=== PATIENT | male | born 1945 | race Two or more races ===

== ENCOUNTER 2017-10-23 13:15 | Emergency (ER) | payer OTHER ==
[~2017-10-23] VITALS: Ht 165.1 cm; Wt 74.8 kg
[~2017-10-23 13:15] MED LIST: CARB200T39 PO; FLUO20CA36 PO; HYDR-3026 PO; LEVE250T2 PO; PROP10TA10 PO; TAMS0.4C34 PO
--- NOTE | 2017-10-23 13:20 | NUR ---
BBRA FROM HOME,POSSIBLE SEIZURE EPISODE PER ROOMMATE MOUTH WAS FOAMING AND EXTREMITIES LOCKING. BS-120 PT HAS NO COMPLAINTS NOW, NAD NOTED, VSS, RESP EVEN AND UNLABORED, WAITING FOR MD MCMAHAN.
[2017-10-23 14:58] LABS: BASOPHILS # (AUTO) 0.1 /CMM (0.0-0.2); BASOPHILS % (AUTO) 0.9 % (0.0-2.0); EOSINOPHILS % (AUTO) 0.2 % (0.0-6.0); HEMATOCRIT 38 % (39-51); HEMOGLOBIN 12.9 g/dL (13.5-17.5); LYMPHOCYTES # (AUTO) 0.9 /CMM (0.8-4.8); LYMPHOCYTES % (AUTO) 11.3 % (20.0-44.0); MEAN CORPUSCULAR HEMOGLOBIN 31 PG (26.0-33.0); MEAN CORPUSCULAR HGB CONC 35 g/dl (31.0-36.0); MEAN CORPUSCULAR VOLUME 91 fL (80-96); MONOCYTES # (AUTO) 0.5 /CMM (0.1-1.30); MONOCYTES % (AUTO) 5.6 % (2.0-12.0); NEUTROPHILS # (AUTO) 6.9 /CMM (1.8-8.9); PLATELET COUNT (AUTO) 219 /CMM (150-450); RED BLOOD CELL COUNT(AUTO) 4.12 MIL/uL (4.5-6.0); WHITE BLOOD COUNT (AUTO) 8.4 K/uL (4.3-11.0)
[2017-10-23 15:09] LABS: CALCIUM, SERUM 9.1 mg/dL (8.5-10.1); CARBON DIOXIDE 30 mmol/L (21-32); CHLORIDE 103 mmol/L (98-107); GLUCOSE 111 mg/dL (74-106); POTASSIUM 4.6 mmol/L (3.5-5.1); SODIUM SERUM 136 mmol/L (136-145); UREA NITROGEN, BLOOD 10 mg/dL (7-18)
[2017-10-23 15:46] LABS: VALPROIC ACID < 3 ug/mL (50-100)
[2017-10-23] MEDS ORDERED: VALPROIC ACID 250 MG/5 ML UDC PO ONE (16:00)
[2017-10-23] MEDS ORDERED: VALPROIC ACID 250 MG/5 ML UDC ONE (16:02)
[2017-10-23 16:16] VITALS: BP 138/89
--- NOTE | 2017-10-23 16:17 | NUR ---
Patient discharged to home in stable condition. Written and verbal after care instructions given. Patient verbalizes understanding of instruction. Prescription given.
== END 2017-10-23 16:17 | disposition home or self-care (01) ==
LOC: ER 13:16
DX: G40.909 Epilepsy, unspecified, not intractable, without status epilepticus (principal); I10 Essential (primary) hypertension; K21.9 Gastro-esophageal reflux disease without esophagitis; Z91.19 Patient's noncompliance with other medical treatment and regimen; Z90.49 Acquired absence of other specified parts of digestive tract
CPT/HCPCS: 36415; 80048; 80164; 85025; 99284; A4606; Z7610

== ENCOUNTER 2018-12-07 12:13 | Inpatient (IN) | payer MEDICARE, OTHER ==
[~2018-12-07] VITALS: Ht 165.1 cm; Wt 77.1 kg
--- NOTE | 2018-12-07 12:13 | NUR ---
SEEN AND EXAMINED BY DR. MARTINEZ.
--- NOTE | 2018-12-07 12:13 | NUR ---
PT BIB [facility] FROM HOME,ACTING CONFUSED PER FAMILY, HAD A SEIZURE YESTERDAY PER REPORT, PT IS AAOX2, NOT IN RESPIRATORY DISTRESS, V/S STABLE, HOOKED TO MONITOR, KEPT RESTED AND COMFORTABLE, WILL CONTINUE TO MONITOR.
--- NOTE | 2018-12-07 12:15 | NUR ---
IV LINE ESTABLISHED, LABS DRAWNED AND SENT TO LAB.
--- NOTE | 2018-12-07 12:37 | NUR ---
TINWARE LITHOGRAPH PRESS OPERATOR AT BEDSIDE FOR XRAY.
[2018-12-07 12:40] LABS: BASOPHILS # (AUTO) 0.1 /CMM (0.0-0.2); BASOPHILS % (AUTO) 0.4 % (0.0-2.0); EOSINOPHILS % (AUTO) 0.1 % (0.0-6.0); HEMATOCRIT 42 % (39-51); HEMOGLOBIN 14.3 g/dL (13.5-17.5); LYMPHOCYTES # (AUTO) 1.4 /CMM (0.8-4.8); LYMPHOCYTES % (AUTO) 10.6 % (20.0-44.0); MEAN CORPUSCULAR HGB CONC 34 g/dl (31.0-36.0); MEAN CORPUSCULAR VOLUME 94 fL (80-96); MONOCYTES % (AUTO) 7.2 % (2.0-12.0); NEUTROPHILS # (AUTO) 11.2 /CMM (1.8-8.9); NEUTROPHILS % (AUTO) 81.7 % (43.0-81.0); PLATELET COUNT (AUTO) 262 /CMM (150-450); RED BLOOD CELL COUNT(AUTO) 4.51 MIL/uL (4.5-6.0); WHITE BLOOD COUNT (AUTO) 13.7 K/uL (4.3-11.0)
--- NOTE | 2018-12-07 12:40 | NUR ---
HOUSE SUP CALLED FOR BED
--- NOTE | 2018-12-07 12:43 | NUR ---
PT IS WHEELED TO CT SCAN VIA [facility].
[2018-12-07 12:50] LABS: CALCIUM, SERUM 9.5 mg/dL (8.5-10.1); CARBON DIOXIDE 25 mmol/L (21-32); CHLORIDE 100 mmol/L (98-107); CREATININE 1.2 mg/dL (0.6-1.3); GLUCOSE 140 mg/dL (74-106); POTASSIUM 3.6 mmol/L (3.5-5.1); SODIUM SERUM 136 mmol/L (136-145); UREA NITROGEN, BLOOD 22 mg/dL (7-18)
[2018-12-07] MEDS ORDERED: FINA5TAB11 PO (12:51)
[2018-12-07] MEDS ORDERED: OMEP20CA10 PO (12:51)
[2018-12-07] MEDS ORDERED: SIMV10TA6 PO (12:51)
[2018-12-07] MEDS ORDERED: LEVE100023 PO (12:51)
[2018-12-07] MEDS ORDERED: IBUP-1490 PO (12:51)
[2018-12-07] MEDS ORDERED: AMLO2.5T4 PO (12:51)
[2018-12-07] MEDS ORDERED: AMIT100T2 PO (12:51)
[2018-12-07] MEDS ORDERED: METO-357 PO (12:51)
[2018-12-07] MEDS ORDERED: CETI10TA14 PO (12:51)
--- NOTE | 2018-12-07 12:53 | NUR ---
PT IS BACK FROM THE CT SCAN, AWATING RESULT.
[2018-12-07 12:55] LABS: ALANINE AMINOTRANSFERASE 32 U/L (12-78); ALBUMIN 4.3 g/dL (3.4-5.0); ALKALINE PHOSPHATASE 82 U/L (46-116); ASPARTATE AMINOTRANSFERASE 58 U/L (15-37); BILIRUBIN,DIRECT 0.2 mg/dL (0.0-0.2); BILIRUBIN,TOTAL 1.3 mg/dL (0.2-1.0); TOTAL PROTEIN, SERUM 8.5 g/dL (6.4-8.2)
--- NOTE | 2018-12-07 12:58 | NUR ---
BED GIVE 307 [phone]
[2018-12-07 13:15] LABS: CHOLESTEROL 198 mg/dL (<200); HDL CHOLESTEROL 57 mg/dL (40-60); LDL 126 mg/dL (0-99); TRIGLYCERIDES 111 mg/dL (30-150)
[2018-12-07] MEDS ORDERED: ASPIRIN 325 MG TABLET PO ONE (14:00)
[2018-12-07] MEDS ORDERED: LEVETIRACETAM (500MG) 500 MG in IV NS 0.9% 100 ML IV ONE (14:00)
--- NOTE | 2018-12-07 14:00 | NUR ---
REPORT GIVEN TO ONEL LENNON FOR MARKUS, WITH ONGOING KEPPRA STILL INFUSING.
[2018-12-07] MEDS ORDERED: ASPIRIN 325 MG TABLET ONE (14:04)
[2018-12-07 15:00] VITALS: BP 143/85
[2018-12-07] MEDS ORDERED: HYDROCODONE/APAP 5/325MG 1 EACH TABLET PO PRN (15:00)
[2018-12-07] MEDS ORDERED: MAGNESIUM HYDROXIDE 30 ML UDC PO PRN (15:00)
[2018-12-07] MEDS ORDERED: Z GUARD REMEDY 2 OZ OINT TP PRN (15:00)
[2018-12-07] MEDS ORDERED: ACETAMINOPHEN 325 MG TABLET PO PRN (15:00)
[2018-12-07] MEDS ORDERED: cetrizine 10 MG TABLET PO PRN (15:00)
[2018-12-07] MEDS ORDERED: ONDANSETRON HCL/PF 4 MG/2 ML VIAL IVP PRN (15:00)
[2018-12-07] MEDS ORDERED: MAG HYDROX/AL HYDROX/SIMETH 30 ML UDC PO PRN (15:00)
[2018-12-07] MEDS ORDERED: IBUPROFEN 600 MG TABLET PO PRN (15:00)
--- NOTE | 2018-12-07 15:00 | NUR ---
BANQUET COORDINATORAIRCRAFT ARMORER NOTE PT ARRIVED VIA GURNEY IN STABLE CONDITION. PT IS A/O X2, FORGETFUL. RESPIRATIONS ARE EVEN AND UNLABORED, NOT IN ANY ACUTE DISTRESS NOTED. PUPILS ARE REACTIVE TO LIGHT, BILATERAL HAND PUBLIC HEALTH REPRESENTATIVE ARE STRONG AND EQUAL. DENIES ANY PAIN AT THIS TIME, NO C/O SOB, N/V. ABDOMEN IS SOFT AND NONDISTENDED, BOWEL SOUNDS ARE PRESENT IN ALL 4 QUADRANTS UPON AUSCULTATION. DENIES ANY BLADDER DISCOMFORT. IV SITE TO RAC 18G INTACT, NO INFILTRATION NOTED. DRESSING KEPT CLEAN AND DRY. PT CURRENTLY ON KEPPRA FROM ER, WAITING TO BE COMPLETED. NO SKIN ISSUES NOTED. AISHA LOCKE, VARUN, MADE AWARE OF ADMISSION W/ ORDERS CARRIED OUT. INSTRUCTED PT TO USE ALL LIGHT WHEN ASSISTANCE IS NEEDED, CALL LIGHT IS LEFT WITHIN REACH. WILL MONITOR THROUGHOUT SHIFT FOR CONTINUITY OF CARE.
[2018-12-07 16:00] VITALS: BP 143/85
[2018-12-07] MEDS: IV NS 0.9% 1,000 ML IV PRN (17:02)
[2018-12-07] MEDS: SIMVASTATIN 10 MG TABLET PO SCH ×3 (17:02→18:22)
[2018-12-07] MEDS ORDERED: LORAZEPAM INJ 2 MG/ML VIAL IV PRN (17:30)
--- NOTE | 2018-12-07 18:29 | NUR ---
CEMENTING BULK MATERIAL OPERATOR CLOSING NOTES NEEDS MET AND ANTICIPATED. PT IS A/O X2. RESPIRATIONS ARE EVEN AND UNLABORED, NOT IN ANY ACUTE DISTRESS NOTED. PT DENIES ANY PAIN AT THIS TIME, NO C/O SOB, N/V. IV SITE INTACT TO RAC, DRESSING KEPT CLEAN AND DRY. IV FLUIDS RUNNING AT 75ML/HR, TOLERATING WELL. URINE COLLECTED, LAB CALLED FOR P/U. REMINDED PT TO USE CALL LIGHT WHEN ASSISTANCE IS NEEDED, CALL LIGHT IS LEFT WITHIN REACH.
--- NOTE | 2018-12-07 20:08 | NUR ---
PHOTO COLORER NOTES RECEIVED PATIENT AWAKE IN BED AND WATCHING TV WITH NO DISTRESS NOTED. CALL LIGHT WITHIN REACH. PERIPHERAL LINE INTACT AND PATENT. NO C/O PAIN OR DISCOMFORT. BED IN LOW LOCK SETTING. ROOM FREE OF CLUTTER AND BELONGINGS KEPT NEAR BEDSIDE. WILL CONTINUE TO MONITOR.
[2018-12-07 20:10] LABS: BILIRUBIN,URINE NEGATIVE (NEGATIVE); BLOOD, URINE 1+ Ery/uL (NEGATIVE); COLOR,URINE YELLOW (YELLOW); KETONES,URINE TRACE (NEGATIVE); LEUKOCYTE ESTERASE ,URINE NEGATIVE (NEGATIVE); NITRITE, URINE NEGATIVE (NEGATIVE); PROTEIN,URINE 1+ mg/dl (NEGATIVE); UGLUCOSE NEGATIVE (NEGATIVE); UROBILINOGEN,URINE 0.2 EU/dL (0.2)
[2018-12-07 20:16] LABS: APPEARANCE,URINE SLIGHTLY HAZY (CLEAR)
[2018-12-07 20:27] LABS: BACTERIA,URINE Moderate /HPF (None Seen); SQUAMOUS EPITHELIAL CELL,UR Few /HPF (None Seen)
[2018-12-07 20:29] LABS: HYALINE CASTS, URINE Few /LPF (None Seen)
[2018-12-07 20:30] VITALS: BP 137/72
[2018-12-07] MEDS: LEVETIRACETAM (250 MG) 250 MG TABLET PO SCH (21:22)
[2018-12-07] MEDS: AMITRIPTYLINE HCL 25 MG TABLET PO SCH (21:24)
[2018-12-08 00:27] VITALS: BP 127/74
[2018-12-08 04:00] VITALS: BP 124/69
--- NOTE | 2018-12-08 06:05 | NUR ---
PEDIATRIC PHYSICIAN NOTES PATIENT ASLEEP IN BED WITH NO DISTRESS NOTED. CALL LIGHT WITHIN REACH. ALL DUE MEDS GIVEN ORDERED WITH NO ASE NOTED. NO C/O PAIN OR DISCOMFORT. PERIPHERAL LINE INTACT AND PATENT. ROOM FREE OF CLUTTER AND ALL BELONGINGS KEPT NEAR BEDSIDE. WILL ENDORSE TO ONCOMING SHIFT.
[2018-12-08] MEDS: IV NS 0.9% 1,000 ML IV PRN (06:33)
[2018-12-08 06:36] LABS: BASOPHILS % (AUTO) 0.4 % (0.0-2.0); EOSINOPHILS % (AUTO) 0.2 % (0.0-6.0); HEMATOCRIT 39 % (39-51); HEMOGLOBIN 13.3 g/dL (13.5-17.5); LYMPHOCYTES # (AUTO) 1.9 /CMM (0.8-4.8); LYMPHOCYTES % (AUTO) 23.3 % (20.0-44.0); MEAN CORPUSCULAR HGB CONC 35 g/dl (31.0-36.0); MEAN CORPUSCULAR VOLUME 93 fL (80-96); MONOCYTES # (AUTO) 0.8 /CMM (0.1-1.30); MONOCYTES % (AUTO) 10.6 % (2.0-12.0); NEUTROPHILS # (AUTO) 5.2 /CMM (1.8-8.9); NEUTROPHILS % (AUTO) 65.5 % (43.0-81.0); PLATELET COUNT (AUTO) 204 /CMM (150-450); RED BLOOD CELL COUNT(AUTO) 4.14 MIL/uL (4.5-6.0)
[2018-12-08 06:41] LABS: CALCIUM, SERUM 8.5 mg/dL (8.5-10.1); CARBON DIOXIDE 24 mmol/L (21-32); CHLORIDE 107 mmol/L (98-107); CREATININE 1.1 mg/dL (0.6-1.3); GLUCOSE 100 mg/dL (74-106); MAGNESIUM 2.6 mg/dL (1.8-2.4); PHOSPHORUS 3.4 mg/dL (2.5-4.9); POTASSIUM 3.5 mmol/L (3.5-5.1); SODIUM SERUM 142 mmol/L (136-145); UREA NITROGEN, BLOOD 25 mg/dL (7-18)
[2018-12-08 07:04] LABS: CHOLESTEROL 175 mg/dL (<200); HDL CHOLESTEROL 46 mg/dL (40-60); LDL 112 mg/dL (0-99); THYROID STIMULATING HORMONE 1.145 uIU/mL (0.358-3.74); TRIGLYCERIDES 141 mg/dL (30-150)
--- NOTE | 2018-12-08 07:28 | NUR ---
MS RN OPENING NOTES RECEIVED PT LAYING IN BED, RESTING COMFORTABLY. PT IS AROUSABLE, ALERT AND RESPONSIVE. AFEBRILE. RESPIRATIONS ARE EVEN AND UNLABORED, NOT IN ANY ACUTE DISTRESS NOTED. DENIES ANY PAIN AT THIS TIME, NO C/O SOB, N/V. IV SITE TO RAC INTACT, NO INFILTRATION NOTED. DRESSING KEPT CLEAN AND DRY. IV FLUIDS RUNNING AT 75ML/HR, TOLERATING WELL. SAFETY MEASURES ARE IN PLACE. INSTRUCTED PT TO USE CALL LIGHT WHEN ASSISTANCE IS NEEDED, CALL LIGHT IS LEFT WITHIN REACH. WILL MONITOR THROUGHOUT SHIFT FOR CONTINUITY OF CARE. DAUGHTER AT BEDSIDE.
[2018-12-08 08:00] VITALS: BP 123/73
[2018-12-08] MEDS: TAMSULOSIN 0.4 MG CAP.SR.24H PO SCH (08:11)
[2018-12-08] MEDS: PANTOPRAZOLE 40 MG TABLET.DR PO SCH (08:11)
[2018-12-08] MEDS: FINASTERIDE (5 MG) 5 MG TABLET PO SCH (08:11)
[2018-12-08] MEDS: LEVETIRACETAM (250 MG) 250 MG TABLET PO SCH ×2 (08:11→21:15)
[2018-12-08] MEDS: ASPIRIN 81 MG TAB.CHEW PO SCH (08:11)
[2018-12-08] MEDS: AMLODIPINE BESYLATE 2.5 MG TABLET PO SCH (08:12)
[2018-12-08] MEDS: METOPROLOL SUCCINATE 50 MG TAB.SR.24H PO SCH (08:12)
--- NOTE | 2018-12-08 10:30 | NUR ---
MS RN NOTES-- PT SEEN AND EXAMINED BY AISHA LOCKE NP.
[2018-12-08 11:14] LABS: ALBUMIN 3.6 g/dL (3.4-5.0); BILIRUBIN,DIRECT 0.2 mg/dL (0.0-0.2); BILIRUBIN,TOTAL 1.5 mg/dL (0.2-1.0); TOTAL PROTEIN, SERUM 7.1 g/dL (6.4-8.2)
--- NOTE | 2018-12-08 15:14 | NUR ---
MS RN NOTES-- REPORT GIVEN TO ZONIA FOR TRANSFER OF CARE. PT REMAINS A/O X2-3, AFEBRILE. RESPIRATIONS ARE EVEN AND UNLABORED, NOT IN ANY ACUTE DISTRESS NOTED. PT DENIES ANY PAIN AT THIS TIME, NO C/O SOB, N/V. IV SITE TO RAC INTACT, NO INFILTRATION NOTED. DRESSING KEPT CLEAN AND DRY. SAFETY MEASURES ARE IN PLACE. ENDORSED FOR CONTINUITY OF CARE.
--- NOTE | 2018-12-08 15:23 | NUR ---
M/S RN RECEIVED A REPORT FROM ONEL MOREL TO MONITOR PATIENT FOR ANY CHANGE OF CONDITION. SAW PATIENT SITTING ON WHEELCHAIR UPRIGHT, A/O X 2 AND ABLE TO MAKE NEEDS KNOWN. RESPIRATION EVEN AND NON LABORED WITH NO ACUTE RESPIRATORY DISTRESS. DENIES PAIN AND DISCOMFORT. IV ON RIGHT ANTECUBITAL WITH NO SIGNS AND SYMPTOMS OF INFILTRATION. PLACED CALL LIGHT WITHIN REACH AND ALL NURSING CARE ATTENDED. WILL CONTINUE TO EVALUATE CARE.
[2018-12-08 16:00] VITALS: BP 132/76
[2018-12-08] MEDS: SIMVASTATIN 10 MG TABLET PO SCH (17:24)
--- NOTE | 2018-12-08 18:36 | NUR ---
MS/RN CLOSING NOTES PATIENT ON BED WITH HEAD OF BED ELEVATED RESTING COMFORTABLY. A/O X 1-2 WITH EPISODE OF CONFUSION; GERMAN SPEAKING ONLY. RESPIRATION EVEN AND NON LABORED WITH NO ACUTE RESPIRATORY DISTRESS, LUNGS CLEARED BILATERALLY UPON AUSCULTATION. DENIES PAIN AND DISCOMFORT. ABDOMEN SOFT AND NON DISTENDED WITH ACTIVE BOWEL SOUNDS; LAST BM TODAY X3 WITH NORMAL TEXTURE. SKIN REMAIN INTACT AND DRY WITH NO OPEN SKIN BREAKDOWN. CONTINENT IN BOWEL AND BLADDER; USES URINE WITH BATHROOM PRIVILEGES WITH MINIMAL ASSISTANCE. IV ON RIGHT ANTECUBITAL WITH NO SIGNS AND SYMPTOMS OF INFILTRATION RUNNING AT 75 ML/HR. PLACED CALL LIGHT WITHIN REACH AND ALL NURSING CARE ATTENDED. ENDORSED CARE TO NEXT SHIFT
--- NOTE | 2018-12-08 19:10 | NUR ---
MS RN OPENING NOTES Received patient awake on supine position on bed, no discomfort noted at this time. Patient requested to hold IVF as it keeps on beeping everytime he moves his arm. Encourage patient to increase oral fluid intake. Patient verbalized understanding. Call light within easy reach. Will continue to monitor accordingly.
[2018-12-08 20:00] VITALS: BP 132/75
[2018-12-08] MEDS ORDERED: AMITRIPTYLINE HCL 25 MG TABLET ONE (21:44)
[2018-12-08] MEDS: AMITRIPTYLINE HCL 25 MG TABLET PO SCH (21:48)
[2018-12-09 06:42] LABS: BASOPHILS % (AUTO) 0.3 % (0.0-2.0); EOSINOPHILS % (AUTO) 0.7 % (0.0-6.0); HEMATOCRIT 37 % (39-51); HEMOGLOBIN 12.6 g/dL (13.5-17.5); LYMPHOCYTES % (AUTO) 25.2 % (20.0-44.0); MEAN CORPUSCULAR HGB CONC 34 g/dl (31.0-36.0); MEAN CORPUSCULAR VOLUME 94 fL (80-96); MONOCYTES # (AUTO) 0.8 /CMM (0.1-1.30); MONOCYTES % (AUTO) 9.6 % (2.0-12.0); NEUTROPHILS # (AUTO) 5.1 /CMM (1.8-8.9); NEUTROPHILS % (AUTO) 64.2 % (43.0-81.0); PLATELET COUNT (AUTO) 216 /CMM (150-450); RED BLOOD CELL COUNT(AUTO) 3.94 MIL/uL (4.5-6.0)
--- NOTE | 2018-12-09 06:42 | NUR ---
MS RN CLOSING NOTES Patient asleep on supine position on bed. IVF on hold per patient request, patient noted drinking water well. Provided water at bedside. No new complaints made within the shift. All due meds given, tolerated well, no ASE noted. Kept bed low and locked, call light within easy reach. Endorsed to the next shift.
[2018-12-09 06:57] LABS: CALCIUM, SERUM 8.6 mg/dL (8.5-10.1); CARBON DIOXIDE 23 mmol/L (21-32); CHLORIDE 108 mmol/L (98-107); CREATININE 1.1 mg/dL (0.6-1.3); GLUCOSE 110 mg/dL (74-106); POTASSIUM 3.6 mmol/L (3.5-5.1); SODIUM SERUM 142 mmol/L (136-145); UREA NITROGEN, BLOOD 21 mg/dL (7-18)
[2018-12-09 08:00] VITALS: BP 147/84
[2018-12-09] MEDS: PANTOPRAZOLE 40 MG TABLET.DR PO SCH (08:26)
[2018-12-09] MEDS: ASPIRIN 81 MG TAB.CHEW PO SCH (08:26)
[2018-12-09] MEDS: METOPROLOL SUCCINATE 50 MG TAB.SR.24H PO SCH (08:27)
[2018-12-09] MEDS: FINASTERIDE (5 MG) 5 MG TABLET PO SCH (08:27)
[2018-12-09] MEDS: AMLODIPINE BESYLATE 2.5 MG TABLET PO SCH (08:27)
[2018-12-09] MEDS: TAMSULOSIN 0.4 MG CAP.SR.24H PO SCH (08:27)
[2018-12-09] MEDS: LEVETIRACETAM (250 MG) 250 MG TABLET PO SCH (08:27)
[2018-12-09] MEDS ORDERED: ASPI-1169 PO (12:31)
--- NOTE | 2018-12-09 13:31 | NUR ---
MS RN NOTES-- PT NOT IN ANY APPARENT DISTRESS. ABLE TO MAKE NEEDS KNOWN, NEEDS RENDERED. WILL CONTINUE TO MONITOR.
[2018-12-09 16:00] VITALS: BP 157/85
--- NOTE | 2018-12-09 16:49 | NUR ---
MS CIRCULAR STUFFER NOTE PT DISCHARGED TO HOME IN STABLE CONDITION ACCOMPANIED BY VIA PERSONAL VEHICLE. PT IS A/O X3, AFEBRILE. RESPIRATIONS ARE EVEN AND UNLABORED, NOT IN ANY ACUTE DISTRESS NOTED. PT DENIES ANY PAIN, SOB, N/V. PUPILS ARE REACTIVE TO LIGHT, BILATERAL HAND EMS MANAGER ARE STRONG AND EQUAL. ABDOMEN IS SOFT AND NONDISTENDED, BOWEL SOUNDS ARE PRESENT IN ALL 4 QUADRANTS UPON AUSCULTATION. DENIES ANY BLADDER DISCOMFORT. PT IS AMBULATORY, CONTINENT. NO SKIN ISSUES NOTED, SKIN IS INTACT. IV ACCESS REMOVED, APPLIED PRESSURE AND TOLERATED WELL. ID BAND REMOVED. EXPLAINED DISCHARGE PAPERWORK TO PT AND WITH VERBAL AND WRITTEN UNDERSTANDING. ALL BELONGINGS SENT WITH PT AND SIGNED. PT ACCOMPANIED TO VEHICLE WITH 1 STAFF ASSIST VIA .
== END 2018-12-09 17:00 | disposition home or self-care (01) | DRG 100 ==
LOC: ER 12:19 → TELE 12:59 → MED 12-08 09:39
PROVIDERS: ADMIT Nurse Practitioner Acute Care; ATTEND Nurse Practitioner Acute Care
DX: G40.909 Epilepsy, unspecified, not intractable, without status epilepticus (principal); I21.A1 Myocardial infarction type 2; G93.41 Metabolic encephalopathy; N17.0 Acute kidney failure with tubular necrosis; R74.0 Nonspecific elevation of levels of transaminase and lactic acid dehydrogenase [LDH]; I10 Essential (primary) hypertension; K21.9 Gastro-esophageal reflux disease without esophagitis; F03.90 Unspecified dementia, unspecified severity, without behavioral disturbance, psychotic disturbance, mood disturbance, and anxiety; Z91.19 Patient's noncompliance with other medical treatment and regimen
CPT/HCPCS: 36415; 70450-TC; 71045-TC; 76700-TC; 80048-TC; 80061-TC; 80076-TC; 80156-TC; 80164-TC; 80177; 80305; 81000-TC; 82962-TC; 83735-TC; 84100-TC; 84443-TC; 84484-TC; 85025-TC; 85730-TC; 87081-TC; 87086-TC; 93307-TC; G0378; J1953; J7030

== ENCOUNTER 2018-12-13 12:08 | Outpatient (CLI) | payer MEDICARE, OTHER ==
[~2018-12-13 12:08] MED LIST changes: +AMIT100T2 PO; +AMLO2.5T4 PO; +ASPI-1169 PO; -CARB200T39 PO; +CETI10TA14 PO; +FINA5TAB11 PO; -FLUO20CA36 PO; -HYDR-3026 PO; +IBUP-1490 PO; +LEVE100023 PO; -LEVE250T2 PO; +METO-357 PO; +OMEP20CA10 PO; -PROP10TA10 PO; +SIMV10TA6 PO
[2018-12-13 12:23] VITALS: BP 145/78
== END 2018-12-13 23:59 | disposition home or self-care (01) ==
LOC: MSC 12:08
PROVIDERS: ATTEND Nurse Practitioner Acute Care
DX: I10 Essential (primary) hypertension (principal); G40.909 Epilepsy, unspecified, not intractable, without status epilepticus; K21.9 Gastro-esophageal reflux disease without esophagitis; F32.9 Major depressive disorder, single episode, unspecified

== ENCOUNTER 2025-06-18 22:09 | Emergency (ER) | payer OTHER, MEDICAID ==
[~2025-06-18] VITALS: Ht 170.2 cm; Wt 74.8 kg
[~2025-06-18 22:09] MED LIST changes: -OMEP20CA10 PO; +OMEP20CA15 PO; -SIMV10TA6 PO; +SIMV10TA98 PO
[2025-06-19 00:02] LABS: PLATELET COUNT (AUTO) 175 K/uL (150-450); RED BLOOD CELL COUNT(AUTO) 3.37 MIL/uL (4.5-6.0); RED CELL DISTRIBUTION WIDTH 16.3 % (11.5-15.0); WHITE BLOOD COUNT (AUTO) 5.7 K/uL (4.3-11.0)
[2025-06-19 00:06] LABS: CALCIUM, SERUM 8.8 mg/dL (8.5-10.1); CREATININE 1.4 mg/dL (0.6-1.3); SODIUM SERUM 136 mmol/L (136-145); UREA NITROGEN, BLOOD 21 mg/dL (7-18)
[2025-06-19 00:12] LABS: ASPARTATE AMINOTRANSFERASE 21 U/L (15-37); TOTAL PROTEIN, SERUM 6.8 g/dL (6.4-8.2)
[2025-06-19 00:15] LABS: SERUM AMMONIA 18 umol/L (11-32)
[2025-06-19 00:21] LABS: INR 1.03 (0.91-1.10)
[2025-06-19 00:34] LABS: APPEARANCE,URINE CLEAR (CLEAR); BLOOD, URINE 1+ Ery/uL (NEGATIVE); LEUKOCYTE ESTERASE ,URINE NEGATIVE (NEGATIVE); NITRITE, URINE NEGATIVE (NEGATIVE); UGLUCOSE NEGATIVE (NEGATIVE)
[2025-06-19 00:50] LABS: AMPHETAMINE, URINE NEGATIVE (NEGATIVE); BARBITURATE, URINE NEGATIVE (NEGATIVE); BENZODIAZEPINE, URINE NEGATIVE (NEGATIVE); COCCAINE, URINE NEGATIVE (NEGATIVE); OPIATE, URINE NEGATIVE (NEGATIVE)
[2025-06-19 00:51] LABS: CANNABINOID, URINE POSITIVE (NEGATIVE)
[2025-06-19 00:52] LABS: ADD URINE CULTURE NO; SQUAMOUS EPITHELIAL CELL,UR Few /HPF (None Seen)
[2025-06-19 09:05] VITALS: BP 128/70; TEMP 98; O2SAT 96
== END 2025-06-19 09:06 | disposition home or self-care (01) ==
LOC: ER 22:18
DX: F12.90 Cannabis use, unspecified, uncomplicated (principal); R41.0 Disorientation, unspecified; E86.0 Dehydration; R94.31 Abnormal electrocardiogram [ECG] [EKG]; I10 Essential (primary) hypertension; K21.9 Gastro-esophageal reflux disease without esophagitis; Z79.82 Long term (current) use of aspirin; Z79.899 Other long term (current) drug therapy; Z86.69 Personal history of other diseases of the nervous system and sense organs; Z87.39 Personal history of other diseases of the musculoskeletal system and connective tissue
CPT/HCPCS: 36415; 70450-TC; 71045-TC; 80048-TC; 80076-TC; 81001; 82140-TC; 82962-TC; 84484-TC; 85025-TC; 85730-TC; 98960; G0480